=== PATIENT | female | born 1965 | race Caucasian/White ===

== ENCOUNTER → 2017-01-16 | Outpatient (CLI) | payer OTHER | LOC: FIMAGING 13:00 | PROVIDERS: ATTEND Family Medicine | DX: R10.11 Right upper quadrant pain (principal); K21.9 Gastro-esophageal reflux disease without esophagitis | CPT/HCPCS: A9537 ==

== ENCOUNTER → 2017-03-10 | Outpatient (CLI) | payer OTHER | LOC: FIMAGING 09:47 | PROVIDERS: ATTEND Physician Assistant | DX: R10.11 Right upper quadrant pain (principal); R16.0 Hepatomegaly, not elsewhere classified; K76.0 Fatty (change of) liver, not elsewhere classified ==

== ENCOUNTER 2017-03-23 11:43 | Observation (INO) | payer OTHER ==
--- NOTE | 2017-03-23 11:59 | CPEKG ---
Heart Rate: 69 RR Interval: 870 P-R Interval: 168 QRSD Interval: 76 QT Interval: 428 QTC Interval: 459 P [place]: 45 QRS [place]: 13 T Wave [place]: 31 EKG Severity - NORMAL ECG - EKG Impression: SINUS RHYTHM Electronically Signed By: Madhuri Child 23-Mar-2017 15:26:12
--- NOTE | 2017-03-23 11:59 | EDPHY ---
HPI/HX/ROS/PE/MDM Narrative: CHIEF COMPLAINT: Chest pain HISTORY OF PRESENT ILLNESS: The patient is a 51 y/o female arriving with her complaining of waxing and waning chest pain onset around 09:00 today, about 3 hours ago. She has a history of acid reflux and angina for which she is followed by Dr. Huber. In 2015, she had an abnormal stress test with anterolateral ischemia and subsequent catheterization that showed mild to moderated CAD without flow obstruction. Today she developed non-radiating left anterior chest pain with some associated dyspnea and lightheadedness. She rates it as 3/10 in severity currently. Her pain is present at rest and she cannot identify obvious aggravating factors; it is non-pleuritic. She has not tried anything to alleviate it. She has not yet taken aspirin today. She does notes some mildly worse bilateral leg swelling and has no history of CHF. She denies recent fever, but does mention a minor intermittent cough over last few months. Her cough is occasionally productive with green phlegm. She's also noticed increased belching and some RUQ pain. She has had multiple work ups by her architect intern and GI for these symptoms. No fever, chills, palpitations, vomiting, diarrhea, urinary complaints, headache. REVIEW OF SYSTEMS: Aside from elements discussed in the HPI, a comprehensive 10-point review of systems was reviewed and is negative. PAST MEDICAL HISTORY: Diabetes, angina, acid reflux, rheumatoid arthritis - [facility] Nuclear stress test and cardiac cath in [address] Huber: mild to moderate CAD without flow obstruction. SOCIAL HISTORY: at bedside VITAL SIGNS: Reviewed by me GENERAL: Well-developed, moderately obese, resting comfortably in no respiratory distress. HEENT: Atraumatic. Eyes: No icterus, no injection. Mouth: moist mucous membranes. No erythema or lesions. Neck: supple with no adenopathy, no JVD. LUNGS: Clear to auscultation bilaterally, no wheezes, rhonchi or rales. CARDIAC: Regular rate and rhythm, no rubs, murmurs or gallops. ABDOMEN: Soft, nontender, nondistended, bowel sounds normal. BACK: No CVA tenderness. EXTREMITIES: No trauma. No edema. Range of motion is normal throughout. NEURO: Alert and oriented, grossly nonfocal. SKIN: Warm and dry, no rash. PSYCHIATRIC: Normal mentation, no agitation. Portions of this note were transcribed by a medical insurance verifier. I personally performed a history, physical exam, medical decision making, and confirmed accuracy of information the transcribed note. ED Course: IV established. Labs drawn including CBC, CHEM, troponin, lipase, LFTs. Patient placed on membership sales representative. Chest x-ray ordered. 324mg PO Aspirin and 0.4mg SL nitroglycerin administered. The 12 lead EKG was interpreted by myself. Sinus rhythm rate 69. See hard copy and/or "tracemaster" electronic copy for interpretation. Troponin negative. Chest x-ray shows COPD. Abdominal US ordered for RUQ pain, and abnormal liver function test. Results: An ultrasound scan of the right upper quadrant was obtained. The results of the study were reported to me: No gallstones. However, on review of the patient's records, Dr. Landin recommends that patient should receive a surgical consultation as she has a hyperdynamic ejection fraction on the HIDA scan done previously. Spoke with hospitalist service. Dr. Quiroga accepts admission. MDM: After history and physical examination, the differential for chest pain was considered, including but not limited to, myocardial ischemia, acute coronary syndrome, pulmonary embolus, chest wall pain, GI source of the pain, gallstones , pleural inflammation and pulmonary infectious causes. - Data Points Imaging Results: Imaging Impressions Chest X-Ray 03/23/17 11:57 Impression: COPD +/- airways disease. Stable x9 months. Abdomen Ultrasound 03/23/17 13:18 IMPRESSION: 1. Hepatomegaly. 2. Fatty infiltration of the pancreas and liver. 3. Stable appearance the common bile duct previous imaging studies. 4. There was a sonographic Singh sign; however, there is no cholelithiasis or cholecystitis. In retrospectively reviewing the gallbladder ejection fraction value from the hepatobiliary study of 01/16/2017, this was hyperdynamic at 98%. The literature suggests that normal values are above the 35% threshold; however , there is also some literature that would suggest that an EF above the 75-90% threshold may suggest an "overactive" gallbladder that may explain right upper quadrant pain that would be potentially amenable to improvement with a cholecystectomy. A surgical consultation and opinion is therefore suggested. Findings and recommendations were discussed with Madhuri Child MD at 14:51, on 03/23/2017. Imaging: I viewed and interpreted images myself Laboratory Results: Laboratory Results 03/23/17 12:09 03/23/17 12:09 03/23/17 03/23/17 12:09 12:09 WBC 8.15 10^3/uL 10^3/uL (3.80-9.50) RBC 4.67 10^6/uL 10^6/uL (4.18-5.33) Hgb 12.8 g/dL g/dL (12.6-16.3) Hct 40.1 % % (38.0-47.0) MCV 85.9 fL fL (81.5-99.8) MCH 27.4 pg L pg (27.9-34.1) MCHC 31.9 g/dL L g/dL (32.4-36.7) RDW 14.5 % % (11.5-15.2) Plt Count 339 10^3/uL 10^3/uL (150-400) MPV 9.6 fL fL (8.7-11.7) Neut % (Auto) 61.1 % % (39.3-74.2) Lymph % (Auto) 30.3 % % (15.0-45.0) [place] % (Auto) 5.9 % % (4.5-13.0) Eos % (Auto) 1.7 % % (0.6-7.6) Baso % (Auto) 0.6 % % (0.3-1.7) Nucleat RBC Rel Count 0.0 % % (0.0-0.2) Absolute Neuts (auto) 4.98 10^3/uL 10^3/uL (1.70-6.50) Absolute Lymphs (auto) 2.47 10^3/uL 10^3/uL (1.00-3.00) Absolute Monos (auto) 0.48 10^3/uL 10^3/uL (0.30-0.80) Absolute Eos (auto) 0.14 10^3/uL 10^3/uL (0.03-0.40) Absolute Basos (auto) 0.05 10^3/uL 10^3/uL (0.02-0.10) Absolute Nucleated RBC 0.00 10^3/uL 10^3/uL (0-0.01) Immature Gran % 0.4 % % (0.0-1.1) Immature Gran # 0.03 10^3/uL 10^3/uL (0.00-0.10) Sodium 140 mEq/L mEq/L (134-144) Potassium 3.8 mEq/L mEq/L (3.5-5.2) Chloride 102 mEq/L mEq/L (97-110) Carbon Dioxide 24 mEq/l mEq/l (22-31) Anion Gap 14 mEq/L mEq/L (8-16) BUN 9 mg/dL mg/dL (7-23) Creatinine 0.6 mg/dL mg/dL (0.6-1.0) Estimated GFR > 60 Glucose 151 mg/dL H mg/dL (70-100) Calcium 9.7 mg/dL mg/dL (8.5-10.4) Total Bilirubin 0.6 mg/dL mg/dL (0.1-1.4) Conjugated Bilirubin 0.4 mg/dL mg/dL (0.0-0.5) Unconjugated Bilirubin 0.2 mg/dL mg/dL (0.0-1.1) AST 140 IU/L H IU/L (14-46) ALT 82 IU/L H IU/L (9-52) Alkaline Phosphatase 116 IU/L IU/L (38-126) Troponin I < 0.012 ng/mL ng/mL (0-0.034) Total Protein 7.1 g/dL g/dL (6.3-8.2) Albumin 4.2 g/dL g/dL (3.5-5.0) Lipase 227.0 IU/L IU/L (23-300) Medications Given: Discontinued Medications Aspirin (Aspirin) 324 mg PO EDNOW ONE Stop: 03/23/17 12:11 Last Admin: 03/23/17 12:16 Dose: Not Given Aspirin (Aspirin) 324 mg PO EDNOW ONE Stop: 03/23/17 12:11 Last Admin: 03/23/17 12:15 Dose: 324 mg Nitroglycerin (Nitrostat) 0.4 mg SL EDNOW ONE Stop: 03/23/17 12:11 Last Admin: 03/23/17 12:27 Dose: 0.4 mcg General Time Seen by Provider: 03/23/17 11:55 Initial Vital Signs: Initial Vital Signs Temperature (C) 36.6 C 03/23/17 11:51 Heart Rate 78 03/23/17 11:51 Respiratory Rate 18 03/23/17 11:51 Blood Pressure 146/86 H 03/23/17 11:51 O2 Sat (%) 94 03/23/17 11:51 O2 Delivery Mode Room Air O2 (L/minute) 2 Allergies/Adverse Reactions: losartan [Losartan] Allergy (Verified 02/22/16 07:23) meloxicam Allergy (Verified 02/22/16 07:23) Home Medications: Medication Instructions Recorded Aspirin [Aspirin 81mg (*)] 81 mg PO HS 02/22/16 Citalopram Hydrobromide [Celexa] 40 mg PO HS 02/22/16 Herbals/Supplements -Info Only 1 ea PO DAILY 02/22/16 Hydrochlorothiazide [HCTZ (*)] 25 mg PO DAILY 02/22/16 Metoprolol Succinate Xr [Toprol Xl 100 mg PO HS 02/22/16 100 mg (*)] Multivitamins [Multivitamin (*)] 1 each PO DAILY 02/22/16 Pantoprazole Sodium [Protonix 40mg 40 mg PO DAILY 02/22/16 (*)] metFORMIN HCL [Glucophage 1000 mg] 1,000 mg PO BIDMEAL 02/22/16 traMADol [Ultram 50 mg (*)] 50 mg PO DAILY PRN 02/22/16 Adalimumab [Humira] 40 mg SQ Q14D 03/23/17 Cholecalciferol Vit D3 [Vitamin D3 2,000 units PO DAILY 03/23/17 2000 units tab (OTC)] Cyclobenzaprine [Flexeril 10 MG 10 mg PO DAILY PRN 03/23/17 (*)] Norgestimate-Ethinyl Estradiol 1 each PO HS 03/23/17 [Norg-Ethin Estra 0.25-0.035 mg] Pioglitazone HCl [Actos 15mg (*)] 15 mg PO DAILY 03/23/17 oxyCODONE/APAP 5/325 [Percocet 1 - 2 tab PO DAILY PRN 03/23/17 5/325] Departure - Departure Disposition: [facility] Acute Clinical Impression: Chest pain Qualifiers: Chest pain type: other chest pain Qualified Code(s): R07.89 - Other chest pain Condition: Fair Report Scribed for: Madhuri Child Report Scribed by: Zaynab Yanes Date of Report: 03/23/17 Time of Report: 12:10
[2017-03-23] MEDS ORDERED: ASPIRIN 81 MG CHEWABLE TAB PO ONE ×2 (12:10)
[2017-03-23 12:15] LABS: % IMMATURE GRANULYOCYTES 0.4 % (0.0-1.1); ABSOLUTE IMMATURE GRANULOCYTES 0.03 10^3/uL (0.00-0.10); ADD DIFF? NO; ADD MORPH? NO; ADD SCAN? NO; ATYPICAL LYMPHOCYTE FLAG 0 (0-99); FRAGMENT RBC FLAG 0 (0-99); HEMATOCRIT 40.1 % (38.0-47.0); HEMOGLOBIN 12.8 g/dL (12.6-16.3); LEFT SHIFT FLG 0 (0-99); LIPEMIA HEMOLYSIS FLAG 80 (0-99); MEAN CELL HEMOGLOBIN 27.4 pg (27.9-34.1); MEAN CELL HEMOGLOBIN CONCENTR. 31.9 g/dL (32.4-36.7); MEAN CELL VOLUME 85.9 fL (81.5-99.8); MEAN PLATELET VOLUME 9.6 fL (8.7-11.7); PLATELET CLUMPS FLAG 0 (0-99); PLATELET COUNT 339 10^3/uL (150-400); RED BLOOD CELL COUNT 4.67 10^6/uL (4.18-5.33); RED CELL DISTRIBUTION WIDTH 14.5 % (11.5-15.2)
[2017-03-23] MEDS: NITROGLYCERIN 0.4 MG BTL SL ONE ×3 (12:15→12:27)
[2017-03-23 12:30] LABS: ALANINE AMINOTRANSFERASE 82 IU/L (9-52); ALBUMIN 4.2 g/dL (3.5-5.0); ALKALINE PHOSPHATASE 116 IU/L (38-126); ANION GAP 14 mEq/L (8-16); ASPARTATE AMINOTRANSFERASE 140 IU/L (14-46); BILIRUBIN,TOTAL 0.6 mg/dL (0.1-1.4); BILIRUBIN-CONJUGATED 0.4 mg/dL (0.0-0.5); BILIRUBIN-UNCONJUGATED 0.2 mg/dL (0.0-1.1); CALCIUM 9.7 mg/dL (8.5-10.4); CARBON DIOXIDE 24 mEq/l (22-31); CHLORIDE 102 mEq/L (97-110); CREATININE 0.6 mg/dL (0.6-1.0); GLOMERULAR FILTRATION RATE > 60; GLUCOSE 151 mg/dL (70-100); POTASSIUM 3.8 mEq/L (3.5-5.2); SODIUM 140 mEq/L (134-144); TOTAL PROTEIN 7.1 g/dL (6.3-8.2)
[2017-03-23 12:41] LABS: TROPONIN I < 0.012 ng/mL (0-0.034)
[2017-03-23] MEDS ORDERED: traMADol 50 MG TAB PO PRN (14:43)
[2017-03-23] MEDS ORDERED: CYCLOBENZAPRINE 10 MG TAB PO PRN (14:43)
[2017-03-23] MEDS ORDERED: ONDANSETRON 4 MG/2 ML VIAL IVP PRN (14:52)
[2017-03-23] MEDS ORDERED: ONDANSETRON DISINTEGRATING 4 MG TAB PO PRN (14:52)
[2017-03-23] MEDS ORDERED: ACETAMINOPHEN 325 MG TAB PO PRN (14:52)
[2017-03-23] MEDS: OXYCODONE/APAP 5/325 TAB PO PRN ×2 (15:10→16:58)
--- NOTE | 2017-03-23 15:21 | GHP ---
[f rep st] HISTORY AND PHYSICAL DATE OF ADMISSION: 03/23/2017 HISTORY OF PRESENT ILLNESS: The patient is a pleasant 51-year-old female with history of coronary a rtery disease and diabetes, who presents with chest pain. She says her typical anginal equivalent w helga brought her to Dr. Huber's care a few years ago was a subtle chest pressure. Today she had mo re of a burning and sharp pain. It was associated with some shortness of breath. No radiation. No diaphoresis. It was nonexertional in nature. She has had an angiogram showing what appears to be like about a 40% to 50% mid LAD lesion as a result of a negative stress test. She is currently on a n aspirin and a beta milo, but not on a statin. She says her diabetes control is okay. She mana es fever, chills, cough, sputum, nausea, vomiting, diarrhea. She has not had heart failure symptoms , such as PND, orthopnea, or lower extremity edema. Regarding her risk factors for coronary disease, she has diabetes and hypertension. She does not sm diamond cigarettes. She quit smoking 10 years ago. REVIEW OF SYSTEMS: She has right upper quadrant pain. She had an ultrasound [facility]. SOCIAL HISTORY: Nonsmoker, quit 15 years ago. Lives in [place]. 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 Does not use cocaine. FAMILY HISTORY: Reviewed and unremarkable. ALLERGIES: Losartan, meloxicam. HOME MEDICATIONS: Metformin, adalimumab (which is Humira), aspirin, vitamin D3, Celexa, cyclobenzap rine, hydrochlorothiazide, metoprolol, multivitamin, oxycodone, pantoprazole, pioglitazone, tramadol . PAST MEDICAL HISTORY: Diabetes, arthritis, coronary artery disease. PHYSICAL EXAMINATION: VITAL SIGNS: Temp 36, blood pressure 146/86, pulse 78, breathing 18 times a minute, 96% on room air. GENERAL: In no acute distress. HEENT: Sclerae anicteric. Oropharynx cl ear. Mucous membranes are moist. NECK: Supple, without lymphadenopathy or JVD. LUNGS: Clear to auscultation bilaterally. HEART: S1, S2, without murmurs. ABDOMEN: Soft, obese, nontender. Ther e is no Singh sign. LOWER EXTREMITIES: Without edema. Calves nontender. SKIN: Without rash. N EUROLOGIC: Exam is nonfocal. LABORATORY DATA: Sodium 140, potassium 3.8, chloride 102, bicarb 24, BUN 9, creatinine 0.6, glucose 151. Bilirubin is normal. AST 140, ALT 82. Alkaline phosphatase 116. Troponin less than 0.012. CBC: White count 8.1, hematocrit 40. Platelets were 339,000. EKG, interpreted by me, shows sinus at 69 with normal axis and intervals. There are flat T's inferiorly, but otherwise no acute ST or T-wave changes. When compared with an EKG from 2015, it is unchanged. Chest x-ray shows no acute cardiopulmonary disease. I have discussed the case with Dr. Madhuri Child and Dr. Gordon Huber. ASSESSMENT AND PLAN: A 51-year-old female with known coronary disease, here with chest pain differe nt from her anginal equivalent. 1. Chest pain. Unclear what to make of this. It does not sound particularly concerning, but her r isk factor profile and presence of coronary disease is noted. She is on reasonable medication manag ement. I will check a lipid panel in the morning. I have notified Dr. Huber whether he would like to perform a stress test in the morning versus go straight to angiogram. I have not heard back fro m him. 2. Diabetes. Will hold her metformin. Will continue her pioglitazone. 3. Right upper quadrant pain with elevated liver function tests. I suspect she has nonalcoholic st eatohepatitis. Right upper quadrant ultrasound pending. She Singh's sign. She may hav e gallstones. It does not appear she has acute cholecystitis. 4. Prophylaxis. Pharmacologic prophylaxis indicated if in the hospital longer than 24 hours. I guillaume spect she will not be. 5. Arthritis. We will not give her Humira while she is here. 6. Diabetes. Will check hemoglobin A1c. 7. Disposition: Observation status. /[id number]/MODL
[2017-03-23] MEDS ORDERED: ASPIRIN 81 MG CHEWABLE TAB PO SCH (21:00)
[2017-03-23] MEDS ORDERED: CITALOPRAM 20 MG TAB PO SCH (21:00)
[2017-03-23] MEDS ORDERED: NORGESTIMATE ETHINYL ESTRADIOL PO SCH (21:00)
[2017-03-23] MEDS ORDERED: NON-FORMULARY NEW DRUG (Citalopram Hydrobromide [Celexa] 40 MG) PO SCH (21:00)
[2017-03-23] MEDS ORDERED: METOPROLOL SUCCINATE XR 100 MG TAB PO SCH (21:00)
[2017-03-24 05:11] LABS: CHOLESTEROL 170 mg/dL (140-220); CHOLESTEROL/HDL RATIO 3.95 RATIO (1.00-4.44); HIGH DENSITY LIPOPROTEIN 43 mg/dL (40-85); LDL/HDL RATIO 2.28 RATIO (1.00-3.22); LOW DENSITY LIPOPROTEIN 98 mg/dL (80-100); NON-HIGH DENSITY LIPOPROTEIN 127 mg/dL (90-129); TRIGLYCERIDE 149 mg/dL (35-135); VERY LOW DENSITY LIPOPROTEINS 29 mg/dL (8-25)
[2017-03-24] MEDS ORDERED: NS 1,000 ML IV ONE (08:37)
[2017-03-24] MEDS ORDERED: FAMOTIDINE 20 MG TAB PO ONE (08:37)
[2017-03-24] MEDS ORDERED: diphenhydrAMINE 25 MG CAP PO ONE ×2 (08:37→08:38)
[2017-03-24] MEDS ORDERED: DIAZEPAM 5 MG TAB PO ONE (08:37)
[2017-03-24] MEDS ORDERED: ASPIRIN EC 325 MG TAB PO ONE ×2 (08:37→08:39)
[2017-03-24] MEDS ORDERED: DIAZEPAM 5 MG TAB ONE (08:39)
[2017-03-24] MEDS ORDERED: FAMOTIDINE 20 MG TAB ONE (08:39)
[2017-03-24] MEDS ORDERED: HYDROCHLOROTHIAZIDE 25 MG TAB PO SCH (09:00)
[2017-03-24] MEDS ORDERED: PIOGLITAZONE HCL 15 MG TAB PO SCH (09:00)
[2017-03-24] MEDS ORDERED: Herbals/Supplements -Info Only PO SCH (09:00)
[2017-03-24] MEDS ORDERED: PANTOPRAZOLE SODIUM 40 MG TAB PO SCH (09:00)
[2017-03-24] MEDS ORDERED: CHOLECALCIFEROL VIT D3 2,000 UNITS TAB/CAP PO SCH (09:00)
[2017-03-24] MEDS ORDERED: MULTIVITAMINS 1 EACH TAB PO SCH (09:00)
[2017-03-24] MEDS ORDERED: LIDOCAINE 1% 30 ML SDV ONE (09:13)
[2017-03-24] MEDS ORDERED: fentaNYL 100 MCG/2 ML INJ ONE ×2 (09:13→09:45)
[2017-03-24] MEDS ORDERED: MIDAZOLAM 2 MG/2 ML VIAL ONE ×3 (09:14→09:45)
[2017-03-24] MEDS ORDERED: IOPAMIDOL (ISOVUE-370) 150 ML BTL IV ONE (09:14)
--- NOTE | 2017-03-24 10:20 | GCON ---
[f rep st] CONSULTATION DATE OF CONSULTATION: 03/24/2017 REFERRING PHYSICIAN: Tuan Quiroga MD CHIEF COMPLAINT: We have been asked by Dr. Quiroga to evaluate the patient with a chief complaint of chest pain. HISTORY OF PRESENT ILLNESS: The patient is a 51-year-old female with known coronary artery disease who presents with a chief complaint of chest pain. The patient was in her usual state of health unt il the day of admission, when she began to experience chest pain. The chest pain is described as a sharp ache located underneath her left breast. The chest pain does not radiate. The chest pain is not associated with nausea, vomiting, or diaphoresis. The patient did report symptoms of shortness of breath with the chest pain. The chest pain is not positional or respirophasic in nature. The pa tient denies symptoms of chest pain with exertion. The patient does have a known history of coronar y artery disease. She was diagnosed with coronary artery disease in 2014, when she presented with a typical chest pain. Stress testing at that time was notable for ischemia. The patient subsequently underwent cardiac catheterization, demonstrating [id number] nonobstructive coronary artery di sease. The patient has done well with medical management until this admission. PAST MEDICAL HISTORY: 1. Coronary artery disease. 2. Hypertension. 3. Hyperlipidemia. 4. Diabetes mellitus. 5. Degenerative joint disease. MEDICATIONS: Please see medicine reconciliation form. ALLERGIES: 1. Losartan. 2. Meloxicam. SOCIAL HISTORY: The patient lives with her in [place]. She does not smoke. She denies pr oblems with alcohol. FAMILY HISTORY: Unremarkable. REVIEW OF SYSTEMS: 10-point review of systems is unremarkable except for right upper quadrant pain with palpation. PHYSICAL EXAM: GENERAL: Patient is resting comfortably in bed. She does not appear to be in acute distress at this time. VITAL SIGNS: Temperature is afebrile. Pulse is 59, blood pressure 133/78, respiratory rate is 15, SaO2 is 97% on 1.5 L nasal cannula. HEENT: Normocephalic atraumatic. Ext raocular muscles intact. NECK: No JVD. No bruits. LUNGS: Clear to auscultation bilaterally. CA RDIOVASCULAR: Regular rate and rhythm, S1, S2. No murmurs, rubs, or gallops appreciated. ABDOMEN: Obese, nontender. Normoactive bowel sounds. Mild tenderness to palpation in the right upper quad rant. EXTREMITIES: No clubbing, cyanosis, or edema. SKIN: No evidence of rashes. NEURO: Patien t is awake, alert, and oriented x3. LABORATORY DATA: White blood cell count 8.15, hemoglobin 12.8, hematocrit 40.1, platelet count 339. Sodium 140, potassium 3.8, chloride 102, CO2 24, BUN 9, creatinine 0.6. Troponin within normal li mits x3. AST is elevated at 140, ALT is elevated at 82. LDL cholesterol is 98. EKG demonstrates s inus rhythm, no acute ST or T-wave changes. ASSESSMENT AND PLAN: The patient is a 51-year-old female with return: 1. Acute coronary syndrome. The patient has known coronary artery disease by cardiac catheterizati on in 2014. She presents with symptoms of chest pain. Some features are suggestive of angina while others are not. Her EKG demonstrates no acute ST or T-wave changes. Her biomarkers are within nor mal limits. Reviewed options for risk stratification, including stress testing and cardiac catheter ization. The patient wishes to pursue cardiac catheterization given history of false positive stres s test in the past. Risks and benefits discussed with the patient and her spouse. Will arrange to have this performed. 2. Hypertension. Blood pressure is well controlled on current therapy. Will continue current medi cations. 3. Hyperlipidemia. Patient's LDL is 98. Her goal would be less than 70. She is intolerant to sta tins. Currently, her LFTs are elevated. Would not recommend statin therapy at this time. 4. Diabetes mellitus. /[id number]/MODL
--- NOTE | 2017-03-24 11:35 | HOSPPROG ---
Hospitalist Progress Note Assessment/Plan: 51 yo F w mild cad here w atypical cp. elevated lft's CAD: no flow limiting CAD continue secondary prevention elevated lft's: c/w DAWSON on metformin ? hyperactive gb: rec outpt surgical eval no evidence of cholecystitis dispo: home today Subjective: cath w unchanged, non flow limiting CAD Objective: Vital Signs Temp Pulse Resp BP Pulse Ox 36.6 C 59 L 15 133/78 H 97 03/24/17 07:00 03/24/17 07:00 03/24/17 07:00 03/24/17 07:00 03/24/17 07:00 03/23/17 03/24/17 03/25/17 05:59 05:59 05:59 Intake Total 1090 Output Total 200 Balance 890 - Physical Exam Constitutional: no apparent distress, appears nourished Eyes: PERRL, anicteric sclera Ears, Nose, Mouth, Throat: moist mucous membranes, hearing normal Cardiovascular: regular rate and rhythym, no murmur, rub, or gallop Respiratory: no respiratory distress, no rales or rhonchi Gastrointestinal: normoactive bowel sounds, soft, non-tender abdomen Genitourinary: no bladder fullness, No west in urethra Skin: warm, normal color Musculoskeletal: full muscle strength, no muscle tenderness Neurologic: AAOx3 ICD10 Worksheet Patient Problems: Problems Problem Status Onset Chest pain Acute
[2017-03-24 11:59] VITALS: TEMP 97.8; O2SAT 90
--- NOTE | 2017-03-24 12:14 | CPIP ---
[f rep st] INVASIVE CARDIAC PROCEDURE DATE OF PROCEDURE: 03/24/2017 PROCEDURES: 1. Coronary angiography. 2. Left ventriculography. INDICATION: 1. Acute coronary syndrome with negative troponin. 2. Known coronary artery disease. ACCESS: Patient was prepped and draped in sterile fashion. 1% lidocaine was used to anesthetize th e right inguinal region. A 6-[place] introducer sheath was placed selectively into the right common femoral artery via modified Seldinger technique. CORONARY ANGIOGRAPHY: A 6-[place] JL4 was advanced to the left main coronary artery and images obtai chioma. The left main coronary artery bifurcated into an LAD and circumflex coronary arteries. The le ft main coronary artery appeared normal. The left anterior descending coronary artery is diffusely diseased in the proximal and mid segments. In the proximal segment, the stenosis approached 30% in severity. In the mid segment, the stenosis approached 20% severity. The left anterior descending c oronary artery gave rise to 3 diagonal branches. The 3 diagonal branches are free of any significan t disease. The circumflex coronary artery is a moderate-sized vessel. The circumflex coronary merlyn ry is nondominant. Circumflex coronary artery had mild diffuse disease throughout. There was no st enosis greater than 20%. The circumflex coronary artery gave rise to a single OM branch. The OM br anch was free of any significant disease. A 6-[place] JR4 was advanced to the right coronary artery and images obtained. The right coronary artery is dominant. The right coronary artery had a proxim al 40% to 50% stenosis present. This did not appear to be significantly changed from 2015 angiogram . LEFT VENTRICULOGRAPHY: A 6-[place] pigtail catheter was advanced in the left ventricle and images ob tained. Left ventricle is normal in size and had normal systolic function. Estimated ejection frac tion was 65%. Left ventricular end-diastolic pressure was elevated at 25 mmHg. COMPLICATIONS: None. CONCLUSIONS: 1. Mild to moderate coronary artery disease without flow limitation. 2. Normal left ventricular systolic function. 3. Plan is for medical management. /[id number]/MODL
--- NOTE | 2017-03-24 12:20 | GDS ---
[f rep st] DISCHARGE SUMMARY DISCHARGE DIAGNOSES: 1. Non-flow limiting coronary disease, unchanged from previous angiogram. 2. Type 2 diabetes. 3. Suspected nonalcoholic steatohepatitis. 4. Hyperactive gallbladder. 5. Inflammatory arthritis. HOSPITAL COURSE: Please see admission history and physical by Dr. Tuan Quiroga. The patient pres ented with chest pain that was unlike GERD and different from previous suspected angina. She had se rial negative troponins and a nonischemic EKG. She underwent coronary angiogram which showed unchan ged non-flow limiting coronary disease. She had an abdominal ultrasound showing a "hyperactive gall bladder without cholelithiasis or pericholecystic fluid." There was a sonographic Singh sign. The re is a blurb at the end of the radiology report suggesting that people with hyperactive gallbladder s may benefit from cholecystectomy. She was referred to outpatient general surgery as an outpatient. She is discharged home today follo wing resolution of her groin care. She had LFTs that showed an AST of 140 and an ALT of 82, consist ent with nonalcoholic steatohepatitis. She did, in fact, have fatty liver on liver disease. She is currently on metformin. She was advised for weight loss and outpatient followup. /[id number]/MODL
[2017-03-24 13:58] VITALS: BP 108/61; RESP 18
[2017-03-24 16:22] VITALS: PULSE 65
[2017-04-01] MEDS ORDERED: (Adalimumab [Humira] 40 MG) SQ SCH (09:00)
[2017-04-01] MEDS ORDERED: ADALIMUMAB 40 MG SQ SCH (14:45)
== END 2017-03-24 15:03 | disposition home or self-care (01) ==
LOC: F2W 14:56
PROVIDERS: ADMIT Internal Medicine; ATTEND Internal Medicine
PROC: 4A023N7 Measurement of Cardiac Sampling and Pressure, Left Heart, Percutaneous Approach (ICD-10-PCS; principal; 2017-03-23)
PROC: B2151ZZ Fluoroscopy of Left Heart using Low Osmolar Contrast (ICD-10-PCS; principal; 2017-03-23)
DX: R07.89 Other chest pain (principal); R94.5 Abnormal results of liver function studies; K76.0 Fatty (change of) liver, not elsewhere classified; I25.10 Atherosclerotic heart disease of native coronary artery without angina pectoris; I10 Essential (primary) hypertension; E11.9 Type 2 diabetes mellitus without complications; E78.5 Hyperlipidemia, unspecified; J44.9 Chronic obstructive pulmonary disease, unspecified; Z87.891 Personal history of nicotine dependence
CPT/HCPCS: 71020; 76705; 93005; 93458; 99285; G0378; C1760; J1644; J2250; J3010; Q9967

== ENCOUNTER 2017-04-24 05:22 | Day surgery (SDC) | payer OTHER ==
[~2017-04-24 05:22] MED LIST: ceFAZolin 2 GM/DEXTROSE 100 ML IV ONE
[2017-04-24] MEDS ORDERED: ceFAZolin 2 GM in NS 100 ML IV ONE (06:00)
[2017-04-24] MEDS ORDERED: LR 1,000 ML IV ONE (06:08)
[2017-04-24 06:18] VITALS: PULSE 70
[2017-04-24] MEDS ORDERED: CEFAZOLIN 2 GM/DEXTROSE/100 ML BAG IV ONE (06:30)
[2017-04-24] MEDS ORDERED: BUPIVACAINE/EPI 0.25% 30 ML SDV ONE (06:53)
--- NOTE | 2017-04-24 06:53 | PDHPUP ---
History & Physical Update H&P update statement: This history and physical update is based on an assessment of the patient which was completed after admission or registration (within 24 hours), but prior to the surgery/procedure. H&P update: H&P reviewed & patient examined, no change in patient's condition since H&P completed
[2017-04-24] MEDS ORDERED: IOPAMIDOL (ISOVUE-M 300) 15 ML VIAL ONE (06:54)
[2017-04-24] MEDS ORDERED: ALBUTEROL 200 PUFFS/18 GM MDI IH ONE (07:02)
[2017-04-24] MEDS ORDERED: fentaNYL 100 MCG/2 ML INJ ONE ×2 (07:11→07:46)
[2017-04-24] MEDS ORDERED: PROPOFOL/EMULSION 500 MG/50 ML BOTTLE IV ONE (07:11)
[2017-04-24] MEDS ORDERED: ROCURONIUM 50 MG/5 ML VIAL ONE (07:17)
[2017-04-24] MEDS ORDERED: RANITIDINE 50 MG/2 ML VIAL ONE (07:17)
[2017-04-24] MEDS ORDERED: KETOROLAC 30 MG/1 ML SDV ONE ×2 (07:17→08:14)
[2017-04-24] MEDS ORDERED: METOCLOPRAMIDE 10 MG/2 ML VIAL ONE (07:17)
[2017-04-24] MEDS ORDERED: ONDANSETRON 4 MG/2 ML VIAL ONE (07:17)
[2017-04-24] MEDS ORDERED: SUGAMMADEX SODIUM 200 MG/2 ML VIAL IVP ONE (07:17)
[2017-04-24] MEDS ORDERED: HYDROmorphONE/DILAUDID 1 MG/ML SYR IVP PRN (07:47)
[2017-04-24] MEDS ORDERED: fentaNYL 100 MCG/2 ML INJ IVP PRN (07:47)
[2017-04-24] MEDS ORDERED: PROMETHAZINE HCL 25 MG/ML INJ IVP PRN (07:47)
[2017-04-24] MEDS ORDERED: LABETALOL HCL 50 MG/10 ML SYR IVP PRN (07:47)
[2017-04-24] MEDS ORDERED: DEXAMETHASONE 4 MG/ML VIAL IVP PRN (07:47)
[2017-04-24] MEDS ORDERED: ONDANSETRON 4 MG/2 ML VIAL IVP PRN (07:47)
[2017-04-24] MEDS ORDERED: NALOXONE HCL 0.4 MG/ML INJ IVP PRN ×2 (07:47→09:41)
[2017-04-24] MEDS ORDERED: METOCLOPRAMIDE 10 MG/2 ML VIAL IVP PRN (07:47)
[2017-04-24] MEDS ORDERED: LR 500 ML IV PRN (07:47)
[2017-04-24] MEDS ORDERED: ALBUTEROL 3 ML DEYVIAL IH PRN (07:47)
--- NOTE | 2017-04-24 07:47 | PDANEPAE ---
ANE Past Medical History - Cardiovascular History Hx Hypertension: Yes Hx Arrhythmias: No Hx Chest Pain: No Hx Coronary Artery / Peripheral Vascular Disease: Yes Hx CHF / Valvular Disease: No Hx Palpitations: No - Pulmonary History Hx COPD: Yes Hx Asthma/Reactive Airway Disease: Yes Hx Recent Upper Respiratory Infection: No Hx Oxygen in Use at Home: No - Neurologic History Hx Cerebrovascular Accident: No Hx Seizures: No Hx Dementia: No - Endocrine History Hx Diabetes: Yes - Renal History Hx Renal Disorders: No - Liver History Hx Hepatic Disorders: Yes - Neurological & Psychiatric Hx Hx Neurological and Psychiatric Disorders: Yes - Cancer History Hx Cancer: No - Congenital Disorder History Hx Congenital Disorders: No - GI History Hx Gastrointestinal Disorders: Yes - Chronic Pain History Chronic Pain: Yes (juvenile RA) ANE Review of Systems - Exercise capacity METS (RN): 4 METS ANE Patient History - Allergies Allergies/Adverse Reactions: losartan [Losartan] Allergy (Verified 04/24/17 06:26) Other-Enter Comments meloxicam Allergy (Verified 04/24/17 06:26) Other-Enter Comments - Home Medications Home Medications: Aspirin [Aspirin 81mg (*)] 81 mg PO HS 02/22/16 [Last Taken 04/19/17 10:00] Citalopram Hydrobromide [Celexa] 40 mg PO HS 02/22/16 [Last Taken 04/23/17] Hydrochlorothiazide [HCTZ (*)] 25 mg PO DAILY 02/22/16 [Last Taken 04/23/17] Metoprolol Succinate Xr [Toprol Xl 100 mg (*)] 100 mg PO HS 02/22/16 [Last Taken 04/23/17] Multivitamins [Multivitamin (*)] 1 each PO DAILY 02/22/16 [Last Taken 04/17/17] Pantoprazole Sodium [Protonix 40mg (*)] 40 mg PO DAILY 02/22/16 [Last Taken ] metFORMIN HCL [Glucophage 1000 mg] 1,000 mg PO BIDMEAL 02/22/16 [Last Taken ] Adalimumab [Humira] 40 mg SQ Q14D 03/23/17 [Last Taken 04/15/17] Cholecalciferol Vit D3 [Vitamin D3 2000 units tab (OTC)] 2,000 units PO DAILY [Last Taken 04/17/17] Cyclobenzaprine [Flexeril 10 MG (*)] 10 mg PO DAILY PRN 03/23/17 [Last Taken ] Norgestimate-Ethinyl Estradiol [Norg-Ethin Estra 0.25-0.035 mg] 1 each PO HS [Last Taken 04/23/17] Pioglitazone HCl [Actos 15mg (*)] 15 mg PO DAILY 03/23/17 [Last Taken 04/23/17] Qvar 04/21/17 [Last Taken 04/23/17] - NPO status NPO Since - Liquids (Date): 04/23/17 NPO Since - Liquids (Time): 23:50 NPO Since - Solids (Date): 04/23/17 NPO Since - Solids (Time): 23:00 - Smoking Hx Smoking Status: Former smoker ANE Labs/Vital Signs - Vital Signs Blood Pressure: 135/89 Heart Rate: 70 Respiratory Rate: 16 O2 Sat (%): 95 Height: 167.64 cm Weight: 104.326 kg ANE Physical Exam - Airway Neck exam: FROM Mallampati Score: Class 2 Mouth exam: poor dentition - Pulmonary Pulmonary: no respiratory distress, reduced air movement - Cardiovascular Cardiovascular: regular rate and rhythym - ASA Status ASA Status: III ANE Anesthesia Plan Anesthesia Plan: general endotracheal anesthesia
[2017-04-24] MEDS ORDERED: LIDOCAINE 2% 5 ML SDV ONE (08:14)
[2017-04-24] MEDS ORDERED: clonIDINE 1 MG/10 ML VIAL EP ONE (08:14)
--- NOTE | 2017-04-24 08:33 | POSTOPPROG ---
Post Op Note Date of Operation: 04/24/17 Surgeon: Abimael Lopez Anesthesiologist: Radha Anesthesia: GET(General Endotracheal) Pre-op Diagnosis: Dysfunctional GB Post-op Diagnosis: chronic cholecystitis Procedure: lap lindsey, liver biopsy Findings: fayyt liver, critical view obtained Inf/Abcess present in the surg proc area at time of surgery?: No EBL: Minimal Specimen(s): gallbag
[2017-04-24 08:38] VITALS: TEMP 98.6
--- NOTE | 2017-04-24 09:00 | POSTANESTH ---
Post Anesthetic Evaluation Cardiovascular Status: Normal, Stable Respiratory Status: Normal, Stable Level of Consciousness/Mental Status: Can Participate in Eval Pain Control: Adequate, Prn Tx Ordered Nausea/Vomiting Control: Adequate, Prn Tx Ordered Complications Possibly Related to Anesthesia: None Noted
[2017-04-24 09:25] VITALS: RESP 15
[2017-04-24] MEDS ORDERED: HYDROCODONE/APAP 5/325 TAB PO PRN (09:41)
[2017-04-24] MEDS ORDERED: OXYCODONE/APAP 5/325 TAB PO PRN (09:41)
[2017-04-24] MEDS ORDERED: ACETAMINOPHEN 500 MG TAB PO PRN (09:41)
[2017-04-24] MEDS ORDERED: HYDROCODONE/APAP 5/325 TAB ONE (09:44)
[2017-04-24 11:06] VITALS: BP 109/66; O2SAT 93
--- NOTE | 2017-04-24 15:12 | GOP ---
[f rep st] OPERATIVE REPORT DATE OF OPERATION: 04/24/2017 SURGEON: Abimael Lopez MD ADMINISTRATIVE SUPPORT CLERK: None. ANESTHESIA: General endotracheal. ANESTHESIOLOGIST: Per Dr. Garcia. PREOPERATIVE DIAGNOSIS: Dysfunctional gallbladder. POSTOPERATIVE DIAGNOSIS: Chronic cholecystitis procedure. PROCEDURE PERFORMED: 1. Laparoscopic cholecystectomy. 2. Liver biopsy. FINDINGS: Fatty infiltration of the liver was apparent. A critical view was obtained. There were some chronic adhesions to the gallbladder proper. SPECIMENS: 1. Gallbladder. 1. Liver biopsy. 2. ESTIMATED BLOOD LOSS: 10 mL. DESCRIPTION OF PROCEDURE: The patient was greeted in the preoperative suite. Once again, risks, be nefits, and alternatives were discussed. Consent was signed. She was then brought back to the oper ative suite, placed on the OR table in supine position. After all anesthesia machines, including SC Ds, were on and functioning, a World [employer] time-out was performed. Antibiotics were g iven on-call to the operating room. After successful induction, the patient's abdomen was prepped and draped in typical sterile fashion. I entered the abdomen via a vertical cut-down inferior to the umbilicus through which the Veress n eedle was passed. I insufflated with CO2 to 15 mmHg, which was well tolerated by the patient. Thro ugh this site, I inserted a 12 mm port under direct visualization. Once in the abdomen, I inserted 3 additional 5 mm trocars, one in the subxiphoid, two in the right upper quadrant, all under direct visualization. Once this was done, I grabbed the fundus of the gallbladder and retracted it over th e liver. Again, the liver had fairly diffuse fatty infiltration and was fairly dense and heavy. After this was done, I was also able to grasp the infundibulum. I dissected at this site using both electrocautery and blunt dissection, creating a critical view. I identified 2 and only 2 structure s leading toward the gallbladder. I clipped them, 2 proximally, 1 distal, and divided them. First, the duct, then the artery. After this was done, I took the gallbladder off the liver bed and remov ed using an EndoCatch bag. Hemostasis was achieved with gentle pressure and electrocautery. I chos e a site on the lateral edge of the liver and sharply carved out a small portion for the liver biops y, which was successfully removed and passed off. Hemostasis at this site was achieved with electro cautery. I then irrigated the right upper quadrant with warm normal saline, nothing clear effluent in the suc tion canister. My clips were then inspected and noted to be hemostatic and intact. I then instille d local anesthetic into all port sites which were removed under direct visualization. Prior to estelle chappell, I closed my infraumbilical site using the Junaid-Austin fascial closure device, noting excel lent fascial reapproximation using an 0 Vicryl [id number] stitch. Skin was closed with running 4-0 Monocryl over which Dermabond was placed. The patient was then extubated and taken to the PACU in satisfactory condition. SURGEON: Abimael Lopez MD DRAINS: None. COUNTS: All counts were reported as correct x2. /[id number]/MODL
== END 2017-04-24 11:42 | disposition home or self-care (01) ==
LOC: FSGY 05:22
PROVIDERS: ATTEND Surgery
PROC: 0FB04ZX Excision of Liver, Percutaneous Endoscopic Approach, Diagnostic (ICD-10-PCS; principal; 2017-04-24 07:15)
PROC: 0FT44ZZ Resection of Gallbladder, Percutaneous Endoscopic Approach (ICD-10-PCS; principal; 2017-04-24 07:15)
DX: K81.1 Chronic cholecystitis (principal); K75.81 Nonalcoholic steatohepatitis (NASH); I10 Essential (primary) hypertension; J45.909 Unspecified asthma, uncomplicated
CPT/HCPCS: J0690; J0735; J1885; J2405; J2704; J2765; J2780; J3010; Q9967

== ENCOUNTER 2017-06-16 16:21 | Emergency (ER) | payer OTHER ==
--- NOTE | 2017-06-16 16:28 | EDPHY ---
H & P HPI/ROS: HPI CHIEF COMPLAINT: High blood sugar blood sugar, 411 at home. HISTORY OF PRESENT ILLNESS: patient is a very pleasant 52-year-old female significant past medical history none spend diabetes, coronary disease COPD she presents emergency room with high blood sugar. She states she has been dealing with high blood sugar recently and doubled her dose of Actos. She took a 2 hour blood sugar level after she ate and it was 411. She states she has eating increased thirst, urinary frequency. Denies being ill. Denies fever. Denies vomiting. Denies abdominal pain chest pain or shortness of breath. She became track her blood sugar soon late May noticed she has been having some higher readings. She is on metformin 1000 mg twice daily as well as Actos 30 mg which she just increased. She has only taken 2 doses this. Past Medical History: Type 2 diabetes, coronary artery disease, arthritis, COPD Past Surgical History: no recent surgery Social History: denies daily use of drugs alcohol tobacco products. 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 Family History: non Contributory ROS REVIEW OF SYSTEMS: A comprehensive 10 point review of systems is otherwise negative aside from elements mentioned in the history of present illness. Exam Constitutional Otherwise appears well nontoxic triage nursing summary reviewed, vital signs reviewed, awake/alert. Eyes normal conjunctivae and sclera, EOMI, PERRLA. HENT normal inspection, atraumatic, moist mucus membranes, no epistaxis, neck supple/ no meningismus, no raccoon eyes. Respiratory clear to auscultation bilaterally, normal breath sounds, no respiratory distress, no wheezing. Cardiovascular rate normal, regular rhythm, no murmur, no edema, distal pulses normal. Gastrointestinal soft, non-tender, no rebound, no guarding, normal bowel sounds, no distension, no pulsatile mass. Genitourinary no CVA tenderness. Musculoskeletal no midline vertebral tenderness, full range of motion, no calf swelling, no tenderness of extremities, no meningismus, good pulses, neurovascularly intact. Skin pink, warm, & dry, no rash, skin atraumatic. Neurologic awake, alert and oriented x 3, AAOx3, moves all 4 extremities equally, motor intact, sensory intact, CN II-XII intact, normal cerebellar, normal vision, normal speech. Psychiatric normal mood/affect. Heme/Lymph/Immune no lymphadenopathy. Differential Diagnosis: includes but is not limited to in a particular order: hyperglycemia, DKA, honk, electrolyte disturbance, dehydration Medical Decision Making: plan for this patient basic blood work including chemistry, urinalysis. Obtain blood sugar. Gentle IV hydration. Re-evaluation: 1650: Spoke with Kisha Shrestha, She explains will be glad to see her tomorrow. She can see any provider in the clinic. They do have openings. Dr. Manzano her own PCP is not back till next week. If she needs to be started on insulin they are happy to arrange this tomorrow. 1714: Re-evaluation at this time. Patient resting comfortably. Blood work review shows blood sugar of 383. No evidence of DKA. Bicarb normal, no anion gap. There is ketones in urine. For tonight I recommend staying well hydrated low carbohydrates. She understands she needs follow-up with primary care doctor office tomorrow most likely need to be started on a low-dose insulin regimen. She understands and is fine with this plan she is fine with being discharged tonight. No evidence of needing emergent insulin or admission at this time. She understands follow-up primary care tomorrow. Return emergency room if there is any worsening symptoms questions or concerns. Source: Patient - Medical/Surgical History Hx Asthma: No Hx Chronic Respiratory Disease: Yes Hx Diabetes: Yes Hx Cardiac Disease: No Hx Renal Disease: No Hx Cirrhosis: No Hx Alcoholism: No Hx HIV/AIDS: No Hx Splenectomy or Spleen Trauma: No Other PMH: HTN, CAD, ANGINA. Bunionectomy--RT foot. Knee scopes. Discectomy. L5-S1 surgery in August 2016 : four screws and two rods. Uterine ablation. Ganglion cyst. angiogram 2014. back fusion 2016. DM 2 - Social History Smoking Status: Former smoker Constitutional: Initial Vital Signs Temperature (C) 36.8 C 06/16/17 16:33 Heart Rate 72 06/16/17 16:33 Respiratory Rate 16 06/16/17 16:33 Blood Pressure 147/97 H 06/16/17 16:33 O2 Sat (%) 95 06/16/17 16:33 O2 Delivery Mode Room Air Allergies/Adverse Reactions: losartan [Losartan] Allergy (Verified 06/16/17 16:39) Other-Enter Comments meloxicam Allergy (Verified 06/16/17 16:39) Other-Enter Comments Home Medications: Medication Instructions Recorded Actos 06/16/17 Aspirin 81mg (*) 06/16/17 Bcp 06/16/17 Effexor 06/16/17 Enbrel 06/16/17 HCTZ (*) 06/16/17 Magnesium 06/16/17 Megared [place]-3 Krill Oil Sfgl 06/16/17 Metformin HCl 06/16/17 Metoprolol Succinate 06/16/17 Mvi 06/16/17 Pantoprazole Sodium 06/16/17 Qvar 06/16/17 Vitamin D3 06/16/17 Medical Decision Making - Data Points Laboratory Results: Laboratory Results 06/16/17 16:28 06/16/17 16:28 06/16/17 06/16/17 06/16/17 16:55 16:28 16:28 WBC 6.74 10^3/uL 10^3/uL (3.80-9.50) RBC 5.04 10^6/uL 10^6/uL (4.18-5.33) Hgb 13.1 g/dL g/dL (12.6-16.3) Hct 40.2 % % (38.0-47.0) MCV 79.8 fL L fL (81.5-99.8) MCH 26.0 pg L pg (27.9-34.1) MCHC 32.6 g/dL g/dL (32.4-36.7) RDW 14.3 % % (11.5-15.2) Plt Count 300 10^3/uL 10^3/uL (150-400) MPV 10.2 fL fL (8.7-11.7) Neut % (Auto) 56.4 % % (39.3-74.2) Lymph % (Auto) 34.3 % % (15.0-45.0) [place] % (Auto) 6.2 % % (4.5-13.0) Eos % (Auto) 2.1 % % (0.6-7.6) Baso % (Auto) 0.7 % % (0.3-1.7) Nucleat RBC Rel Count 0.0 % % (0.0-0.2) Absolute Neuts (auto) 3.80 10^3/uL 10^3/uL (1.70-6.50) Absolute Lymphs (auto) 2.31 10^3/uL 10^3/uL (1.00-3.00) Absolute Monos (auto) 0.42 10^3/uL 10^3/uL (0.30-0.80) Absolute Eos (auto) 0.14 10^3/uL 10^3/uL (0.03-0.40) Absolute Basos (auto) 0.05 10^3/uL 10^3/uL (0.02-0.10) Absolute Nucleated RBC 0.00 10^3/uL 10^3/uL (0-0.01) Immature Gran % 0.3 % % (0.0-1.1) Immature Gran # 0.02 10^3/uL 10^3/uL (0.00-0.10) Sodium 137 mEq/L mEq/L (134-144) Potassium 3.7 mEq/L mEq/L (3.5-5.2) Chloride 98 mEq/L mEq/L (97-110) Carbon Dioxide 23 mEq/l mEq/l (22-31) Anion Gap 16 mEq/L mEq/L (8-16) BUN 10 mg/dL mg/dL (7-23) Creatinine 0.6 mg/dL mg/dL (0.6-1.0) Estimated GFR > 60 Glucose 383 mg/dL H mg/dL (70-100) Calcium 9.4 mg/dL mg/dL (8.5-10.4) Urine Color YELLOW Urine Appearance CLEAR Urine pH 6.0 (5.0-7.5) Ur Specific Welsh 1.010 (1.002-1.030) Urine Protein NEGATIVE (NEGATIVE) Urine Ketones TRACE H (NEGATIVE) Urine Blood NEGATIVE (NEGATIVE) Urine Nitrate NEGATIVE (NEGATIVE) Urine Bilirubin NEGATIVE (NEGATIVE) Urine Urobilinogen 1.0 EU EU (0.2-1.0) Ur Leukocyte Esterase NEGATIVE (NEGATIVE) Urine RBC NONE SEEN /hpf /hpf (0-3) Urine WBC NONE SEEN /hpf /hpf (0-3) Ur Epithelial Cells 1+ /lpf /lpf (NONE-1+) Urine Mucus TRACE /lpf /lpf (NONE-1+) Urine Glucose 3+ H (NEGATIVE) Medications Given: Discontinued Medications Sodium Chloride (Ns) 1,000 mls @ 0 mls/hr IV ONCE ONE PRN Reason: Wide Open Stop: 06/16/17 16:35 Last Admin: 06/16/17 16:52 Dose: 1,000 mls Departure - Departure Disposition: Home, Routine, Self-Care Clinical Impression: Hyperglycemia Condition: Good Instructions: Diabetic Hyperglycemia (ED) Additional Instructions: 1. please follow up with her primary care doctor's office tomorrow. He should call there and see any available provider. 2. You need to be started on most likely a low-dose insulin regimen. 3. Return emergency room if you have any worsening symptoms questions or concerns. Referrals: Loren Cedeno MD [Primary Care Provider] - As per Instructions
[2017-06-16] MEDS ORDERED: NS 1,000 ML IV ONE (16:34)
[2017-06-16 16:37] VITALS: TEMP 98.2
[2017-06-16 16:39] LABS: % IMMATURE GRANULYOCYTES 0.3 % (0.0-1.1); ABSOLUTE IMMATURE GRANULOCYTES 0.02 10^3/uL (0.00-0.10); ADD DIFF? NO; ADD MORPH? NO; ADD SCAN? NO; ATYPICAL LYMPHOCYTE FLAG 10 (0-99); FRAGMENT RBC FLAG 0 (0-99); HEMATOCRIT 40.2 % (38.0-47.0); HEMOGLOBIN 13.1 g/dL (12.6-16.3); LEFT SHIFT FLG 0 (0-99); LIPEMIA HEMOLYSIS FLAG 80 (0-99); MEAN CELL HEMOGLOBIN CONCENTR. 32.6 g/dL (32.4-36.7); MEAN CELL VOLUME 79.8 fL (81.5-99.8); MEAN PLATELET VOLUME 10.2 fL (8.7-11.7); PLATELET CLUMPS FLAG 10 (0-99); PLATELET COUNT 300 10^3/uL (150-400); RED BLOOD CELL COUNT 5.04 10^6/uL (4.18-5.33); RED CELL DISTRIBUTION WIDTH 14.3 % (11.5-15.2)
[2017-06-16 16:51] LABS: ANION GAP 16 mEq/L (8-16); CALCIUM 9.4 mg/dL (8.5-10.4); CARBON DIOXIDE 23 mEq/l (22-31); CHLORIDE 98 mEq/L (97-110); CREATININE 0.6 mg/dL (0.6-1.0); GLOMERULAR FILTRATION RATE > 60; GLUCOSE 383 mg/dL (70-100); POTASSIUM 3.7 mEq/L (3.5-5.2); SODIUM 137 mEq/L (134-144)
[2017-06-16 16:59] LABS: COLOR YELLOW; LEUKOCYTE ESTERASE,URINE NEGATIVE (NEGATIVE); NITRITE,URINE NEGATIVE (NEGATIVE)
[2017-06-16 17:07] LABS: MUCUS TRACE /lpf (NONE-1+); RBC,URINE NONE SEEN /hpf (0-3); WBC,URINE NONE SEEN /hpf (0-3)
[2017-06-16 18:10] VITALS: BP 127/87; PULSE 68; RESP 18; O2SAT 97
== END 2017-06-16 17:53 | disposition home or self-care (01) ==
LOC: CED 16:21
DX: E11.65 Type 2 diabetes mellitus with hyperglycemia (principal); J44.9 Chronic obstructive pulmonary disease, unspecified; I25.10 Atherosclerotic heart disease of native coronary artery without angina pectoris; I10 Essential (primary) hypertension; Z79.82 Long term (current) use of aspirin; Z79.84 Long term (current) use of oral hypoglycemic drugs; Z87.891 Personal history of nicotine dependence
CPT/HCPCS: 80048-PO; 81003-PO; 81015-PO; 85025-PO

== ENCOUNTER → 2017-12-11 | Outpatient (CLI) | payer OTHER | LOC: FIMAGING 08:19 | DX: Z04.3 Encounter for examination and observation following other accident (principal); M51.36 Other intervertebral disc degeneration, lumbar region ==

== ENCOUNTER → 2018-01-27 | Outpatient (CLI) | payer OTHER | LOC: CIMAGING 10:46 | PROVIDERS: ATTEND Family Medicine | DX: M85.30 Osteitis condensans, unspecified site (principal); Q65.89 Other specified congenital deformities of hip; Z98.1 Arthrodesis status | CPT/HCPCS: 73521-PO ==

== ENCOUNTER → 2018-09-03 | Outpatient (CLI) | payer OTHER | LOC: CIMAGING 14:55 | PROVIDERS: ATTEND Family Medicine | DX: Z12.31 Encounter for screening mammogram for malignant neoplasm of breast (principal) ==